=== PATIENT | male | born 1955 | race Caucasian/White ===

== ENCOUNTER 2019-02-09 05:57 | Day surgery (SDC) | payer OTHER ==
[2019-02-09] MEDS ORDERED: ROPIVACAINE 0.5 % 30 ML VIAL (08:38)
[2019-02-09] MEDS ORDERED: BUPIVACAINE 0.25% (MPF) 30 ML INJ (08:39)
[2019-02-09] MEDS ORDERED: SODIUM CL BACTERIOSTATIC 30 ML INJ (08:41)
[2019-02-09] MEDS: EPINEPHrine 1 MG/ML 30 ML INJ (09:48)
[2019-02-09] MEDS ORDERED: ONDANSETRON 4 MG INJ IV ×2 (12:00→13:00)
[2019-02-09] MEDS ORDERED: HYDROCODONE/APAP (5/325) TAB PO ×2 (12:00)
[2019-02-09] MEDS ORDERED: morphine 2 MG INJ IV (12:00)
[2019-02-09] MEDS: HYDROmorphONE 1 MG/5 ML IV SYRINGE IV ×3 (12:58→13:10)
[2019-02-09] MEDS ORDERED: METOCLOPRAMIDE 10 MG INJ IV (13:00)
[2019-02-09] MEDS ORDERED: hydrALAzine 20 MG INJ IV (13:00)
[2019-02-09] MEDS ORDERED: EPHEDrine 25 MG/5 ML SYG IV (13:00)
[2019-02-09] MEDS ORDERED: ALBUTEROL 0.083% (NEB) 2.5 MG/3 ML AMP HHN (13:00)
[2019-02-09] MEDS ORDERED: MIDAZOLAM 1 MG/ML 2 ML INJ IV (13:00)
[2019-02-09] MEDS ORDERED: ALBUMIN HUMAN 5% 250 ML IV (13:00)
[2019-02-09] MEDS ORDERED: LABETALOL HCL 20MG INJ IV (13:00)
[2019-02-09] MEDS ORDERED: OXYCODONE/ACETAMINOPHEN (5/325) TAB PO (13:00)
[2019-02-09] MEDS ORDERED: MEPERIDINE 25 MG INJ IV (13:00)
[2019-02-12] MEDS ORDERED: PROPOFOL 20 ML (00:10)
[2019-02-12] MEDS ORDERED: ROCURONIUM 50 MG INJ (00:10)
[2019-02-12] MEDS ORDERED: LIDOCAINE 100 MG SYRINGE (00:10)
[2019-02-12] MEDS ORDERED: EPHEDrine 25 MG/5 ML SYG (00:11)
[2019-02-12] MEDS ORDERED: CLINDAMYCIN 900 MG/D5W (PMX) 50 ML IVPB (00:11)
[2019-02-12] MEDS ORDERED: PHENYLephrine 10 MG INJ (00:11)
[2019-02-12] MEDS ORDERED: ONDANSETRON 4 MG INJ (00:11)
[2019-02-12] MEDS ORDERED: METOCLOPRAMIDE 10 MG INJ (00:11)
[2019-02-12] MEDS ORDERED: MIDAZOLAM 1 MG/ML 2 ML INJ (00:11)
[2019-02-12] MEDS ORDERED: DEXAMETHASONE 4 MG/ML 5 ML INJ (00:11)
[2019-02-12] MEDS ORDERED: FENTAnyl 50 MCG/ML VIAL ×2 (00:11)
[2019-02-12] MEDS ORDERED: LABETALOL HCL 20MG INJ (00:11)
== END 2019-02-09 14:32 | disposition home or self-care (01) ==
LOC: SDS 05:57
DX: M75.02 Adhesive capsulitis of left shoulder (principal); M75.102 Unspecified rotator cuff tear or rupture of left shoulder, not specified as traumatic; M25.812 Other specified joint disorders, left shoulder; I10 Essential (primary) hypertension; J45.909 Unspecified asthma, uncomplicated
CPT/HCPCS: 29826